=== PATIENT | female | born 1955 | race Caucasian/White ===

== ENCOUNTER 2016-06-02 16:13 | Emergency (ER) | payer OTHER ==
[~2016-06-02] VITALS: Ht 160 cm; Wt 77.6 kg
[~2016-06-02 16:13] MED LIST: ALBUTEROL0.09 MG/A1 IH; AMLODIPINE5 M1 PO; BENICAR HCT 12.1 TA1 PO; COZAAR50 MG PO; ECOTRIN81 MG PO; GLUCOPHAGE500 MG PO; INVOKANA100 MG PO; ISORDIL20 MG PO; JANUVIA50 MG PO; LANTUS INS100 UNITS/ SUBQ; LOPRESSOR50 MG PO; LOSARTAN POTASS50 MG PO; NITROSTAT0.4 M1 SL; ONGLYZA5 MG PO; OYST CAL PO; PHENAZOPYRIDIN100 MG PO; PIOGLITAZONE15 MG PO; ROBAXIN500 M1 PO; VITAMIN D2000 I1 PO
[2016-06-02 16:26] VITALS: BP 125/71
[2016-06-02 16:46] VITALS: BP 125/71
--- NOTE | 2016-06-02 16:46 | NUR ---
Patient discharged with v/s stable. Written and verbal after care instructions given and explained. Patient alert, oriented and verbalized understanding of instructions. Ambulatory with steady gait. All questions addressed prior to discharge. ID band removed. Patient advised to follow up with PMD. Rx of TYLENOL, CHLORASEPTIC 1.4 % THROAT SPRAY & AMOXICILLIN given. Patient educated on indication of medication including possible reaction and side effects. Opportunity to ask questions provided and answered.
--- NOTE | 2016-06-02 16:52 | NUR ---
61F BIB FAMILY C/O THROAT PAIN RADIATES TO LEFT EAR X 10 DAYS. PT DENIES N/V/D; SKIN IS PINK/WARM/DRY; AAOX4 WITH EVEN AND STEADY GAIT; LUNGS CLEAR BL; HR EVEN AND REGULAR; PT DENIES ANY FEVER, CP, SOB, OR COUGH AT THIS TIME; PATIENT STATES PAIN OF1 0/10 AT THIS TIME; VSS; PATIENT POSITIONED FOR COMFORT; HOB ELEVATED; BEDRAILS UP X2; BED DOWN. ER MD MADE AWARE OF PT STATUS.
== END 2016-06-02 16:52 | disposition home or self-care (01) ==
LOC: MED 16:13
DX: J02.9 Acute pharyngitis, unspecified (principal); I20.9 Angina pectoris, unspecified; I10 Essential (primary) hypertension; E11.9 Type 2 diabetes mellitus without complications; Z79.82 Long term (current) use of aspirin

== ENCOUNTER 2016-08-02 09:58 | Inpatient (IN) | payer OTHER ==
[~2016-08-02] VITALS: Ht 154.9 cm; Wt 79.4 kg
[~2016-08-02 09:58] MED LIST changes: -ALBUTEROL0.09 MG/A1 IH; +AMLO5TAB8 PO; -AMLODIPINE5 M1 PO; +ASPI-1093 PO; -BENICAR HCT 12.1 TA1 PO; +CANA100T PO; -COZAAR50 MG PO; -ECOTRIN81 MG PO; -GLUCOPHAGE500 MG PO; -INVOKANA100 MG PO; -ISORDIL20 MG PO; -JANUVIA50 MG PO; -LANTUS INS100 UNITS/ SUBQ; -LOPRESSOR50 MG PO; +LOSA50TA39 PO; -LOSARTAN POTASS50 MG PO; +METF500T PO; +NITR0.4T2 SL; -NITROSTAT0.4 M1 SL; -ONGLYZA5 MG PO; -OYST CAL PO; -PHENAZOPYRIDIN100 MG PO; +PIOG15TA PO; -PIOGLITAZONE15 MG PO; -ROBAXIN500 M1 PO; -VITAMIN D2000 I1 PO; +[UNRECOGNIZED DRUG - CODE] PO
[2016-08-02 10:03] VITALS: BP 149/68
--- NOTE | 2016-08-02 10:30 | NUR ---
PT TO BED 3.
--- NOTE | 2016-08-02 10:32 | NUR ---
PT AMBUALTE TO RESTROOM FOR URINE SAMPLE.
--- NOTE | 2016-08-02 10:40 | NUR ---
61/F BIB TO ED C/O INTERMITTENT ANTERIOR CHEST PAIN WITH DEEP INSPIRATION X3 DAYS TODAY HEADACHE AND DIZZINESS, ABDOMINAL PAIN, NAUSEA, AND COLD SENSATION TO FEET. HX DM, AND HTN. PT ON RX METFORMIN, LANTUS, IVOCANA, NANUVIA, ASA, LORSARTAN. ER MD MADE AWARE.
[2016-08-02] MEDS ORDERED: ASPIRIN 81 MG TAB.CHEW PO ONE (10:50)
--- NOTE | 2016-08-02 10:50 | NUR ---
Patient being evaluated by physician at bedside.
[2016-08-02 10:54] LABS: BASOPHILS # (AUTO) 0.2 K/uL (0.00-0.22); BASOPHILS % (AUTO) 1.6 % (0.0-2.0); EOSINOPHILS # (AUTO) 0.2 K/uL (0-0.4); EOSINOPHILS % (AUTO) 2.4 % (0.0-4.0); HEMATOCRIT 39.7 % (36-48); LYMPHOCYTES % (AUTO) 31.4 % (20.5-51.1); MEAN CORPUSCULAR HEMOGLOBIN 29 pg (27-31); MEAN CORPUSCULAR HGB CONC 33 g/dL (33-37); MEAN CORPUSCULAR VOLUME 88 fL (80-94); MONOCYTES # (AUTO) 0.5 K/uL (0.8-1.0); MONOCYTES % (AUTO) 5.3 % (1.7-9.3); NEUTROPHILS # (AUTO) 5.5 K/uL (1.8-7.7); NEUTROPHILS % (AUTO) 59.3 % (42.2-75.2); PLATELET COUNT (AUTO) 286 K/uL (140-450); RED BLOOD CELL COUNT(AUTO) 4.51 MIL/uL (4.20-5.40); RED CELL DISTRIBUTION WIDTH 13.8 % (11.6-13.7); WHITE BLOOD COUNT (AUTO) 9.4 K/uL (4.8-10.8)
[2016-08-02 11:15] LABS: CREATININE 0.9 mg/dL (0.6-1.3)
[2016-08-02] MEDS ORDERED: NITROGLYCERIN 2% 1 GM PKT TP ONE (11:15)
[2016-08-02 11:31] LABS: PARTIAL THROMBOPLASTIN TIME 24.6 secs (22-35.6); PROTHROMBIN TIME 9.8 secs (10.8-13.4)
[2016-08-02 12:02] LABS: ALBUMIN 3.7 g/dL (3.4-5.0); TOTAL BILIRUBIN 0.3 mg/dL (0.0-1.0); TOTAL PROTEIN, SERUM 7.1 g/dL (6.4-8.2)
[2016-08-02] MEDS ORDERED: NITROGLYCERIN 0.4 MG TAB SL PRN (12:55)
[2016-08-02] MEDS ORDERED: HYDROcodone/APAP 5/325 MG 1 TAB TAB PO PRN (12:55)
[2016-08-02] MEDS ORDERED: LORazepam 2 MG/ML VIAL IVP PRN (12:55)
[2016-08-02] MEDS ORDERED: DEXTROSE 50% 50 ML SYR IVP PRN (12:55)
[2016-08-02] MEDS ORDERED: MORPHINE SULFATE 2 MG/ML SYR IVP PRN (12:55)
[2016-08-02] MEDS ORDERED: ONDANSETRON 4 MG/2 ML VIAL IVP PRN (12:55)
[2016-08-02] MEDS ORDERED: INSULIN LISPRO SLIDING SCALE 100 UNITS/ML VIAL SUBQ PRN (12:55)
[2016-08-02] MEDS ORDERED: ACETAMINOPHEN 325 MG TAB PO PRN (12:55)
--- NOTE | 2016-08-02 13:26 | NUR ---
CALLED [facility]. STS RECEIVING RN AT LUNCH AT THIS TIME. WILL CALL BACK IN 10-15MINS. CHARGE MADE AWARE.
--- NOTE | 2016-08-02 13:35 | NUR ---
Patient will be admitted to care of DR. BRITTON. Admited to TELE. Will go to room 120-A. Belongings list completed. Report to CP.
[2016-08-02 14:00] VITALS: BP 135/55
--- NOTE | 2016-08-02 14:00 | NUR ---
RECEIVED PT FROM ED VIA NIA, PT IS A/OX4, AMBULATORY, SKIN IS INTACT, IV ON THE RT AC, PATENT, INTACT, FLUSHING WELL, NO S/S OF RESPIRATORY DISTRESS OR DISCOMFORT NOTED, SAFETY/FALL PRECAUTIONS ARE IN PLACE, ORIENTED PT TO ROOM, DISCUSSED PLAN OF CARE WITH PT, PT VERBALIZED UNDERSTANDING, CALL LIGHT IS WITHIN REACH, WILL CONTINUE TO MONITOR.
[2016-08-02 16:00] VITALS: BP 106/53
--- NOTE | 2016-08-02 16:00 | NUR ---
PT IS RESTING IN BED, IS AT BEDSIDE.
[2016-08-02] MEDS: BLOOD GLUCOSE MONITORING 1 DEV DEV FS SCH ×2 (16:30→21:14)
--- NOTE | 2016-08-02 18:15 | NUR ---
PT IS RESTING IN BED, CALL LIGHT WITHIN REACH, WILL CONTINUE TO MONITOR.
--- NOTE | 2016-08-02 19:35 | NUR ---
RECEIVED REPORT FROM DAY SHIFT NURSE. PT AOX4, ABLE TO VERBALIZE NEEDS. PT RESTING IN BED. PT DENIES CHEST PAIN AT THIS TIME. NO SOB OR S/S OF ACUTE DISTRESS. ELECTRONIC PREPRESS OPERATOR IN PLACE. IV ACCESS ASYMPTOMATIC, PATENT AND INTACT, SALINE LOCKED. DISCUSSED AND REVIEWED PLAN OF CARE WITH PT, PT INSTRUCTED TO BE NPO AT MIDNIGHT FOR LEXISCAN TOMORROW. PT VERBALIZES UNDERSTANDING. SAFETY MEASURES ENSURED. CALL LIGHT WITHIN REACH. WILL CONTINUE TO MONITOR.
--- NOTE | 2016-08-02 19:35 | NUR ---
ENDORSED PT TO RUPERT SAMANO. FOR CONTINUITY OF CARE. PT STABLE AT THIS TIME.
[2016-08-02 19:54] LABS: CREATINE KINASE MB 0.4 ng/mL (0-3.6)
[2016-08-02 20:00] VITALS: BP 126/60
--- NOTE | 2016-08-02 21:00 | NUR ---
BLOOD GLUCOSE CHECK 98, NO INSULIN COVERAGE NEEDED. CONDITION STABLE. ALL NEEDS MET. SAFETY MEASURES ENSURED. CALL LIGHT WITHIN REACH. WILL CONTINUE TO MONITOR.
[2016-08-03] VITALS: BP 123/59
--- NOTE | 2016-08-03 01:00 | NUR ---
PT SLEEPING IN BED COMFORTABLY. CONDITION STABLE. SAFETY MEASURES ENSURED. CALL LIGHT WITHIN REACH. WILL CONTINUE TO MONITOR.
[2016-08-03 03:11] LABS: BASOPHILS # (AUTO) 0.3 K/uL (0.00-0.22); BASOPHILS % (AUTO) 4.2 % (0.0-2.0); EOSINOPHILS # (AUTO) 0.5 K/uL (0-0.4); EOSINOPHILS % (AUTO) 5.9 % (0.0-4.0); HEMATOCRIT 37.8 % (36-48); HEMOGLOBIN 12.2 g/dL (12.0-16.0); LYMPHOCYTES # (AUTO) 2.7 K/uL (2.5-16.5); LYMPHOCYTES % (AUTO) 35.5 % (20.5-51.1); MEAN CORPUSCULAR HEMOGLOBIN 28 pg (27-31); MEAN CORPUSCULAR HGB CONC 32 g/dL (33-37); MEAN CORPUSCULAR VOLUME 87 fL (80-94); MONOCYTES # (AUTO) 0.6 K/uL (0.8-1.0); MONOCYTES % (AUTO) 7.5 % (1.7-9.3); NEUTROPHILS # (AUTO) 3.6 K/uL (1.8-7.7); NEUTROPHILS % (AUTO) 46.9 % (42.2-75.2); PLATELET COUNT (AUTO) 275 K/uL (140-450); RED BLOOD CELL COUNT(AUTO) 4.35 MIL/uL (4.20-5.40); WHITE BLOOD COUNT (AUTO) 7.7 K/uL (4.8-10.8)
[2016-08-03 03:30] LABS: ALBUMIN 3.1 g/dL (3.4-5.0); ANION GAP 8.9 (8-16); CALCIUM 8.6 mg/dL (8.5-10.1); CARBON DIOXIDE 29.2 mmol/L (21-32); CREATININE 0.7 mg/dL (0.6-1.3); POTASSIUM 4.1 mmol/L (3.5-5.1); TOTAL BILIRUBIN 0.4 mg/dL (0.0-1.0); TOTAL PROTEIN, SERUM 6.2 g/dL (6.4-8.2)
[2016-08-03 03:40] LABS: CREATINE KINASE MB 0.4 ng/mL (0-3.6)
[2016-08-03 04:00] VITALS: BP 127/58
--- NOTE | 2016-08-03 04:00 | NUR ---
PT SLEEPING IN BED COMFORTABLY. CONDITION STABLE. ALL NEEDS MET. SAFETY MEASURES ENSURED. CALL LIGHT WITHIN REACH. WILL CONTINUE TO MONITOR.
--- NOTE | 2016-08-03 06:48 | NUR ---
PT BLOOD GLUCOSE 123, NO INSULIN COVERAGE NEEDED. CONDITION STABLE. ALL NEEDS MET. SAFETY MEASURES ENSURED. CALL LIGHT WITHIN REACH. WILL CONTINUE TO MONITOR.
--- NOTE | 2016-08-03 07:30 | NUR ---
ENDORSED PLAN OF CARE TO DAY SHIFT NURSE. CONDITION STABLE.
--- NOTE | 2016-08-03 07:31 | NUR ---
SBAR REPORT RECEIVED FROM RUPERT SAMANO AT PT BEDSIDE. PT RESTING IN BED. DENIES PAIN. NO S/S OF RESPIRATORY DISTRESS. AAOX4, KHMER SPEAKING. MADE AWARE OF UPCOMING PROCEDURE TODAY AND NPO STATUS. PT HAS NO WEAKNESS NOTED IN ALL EXTREMITIES. IV SITE PATENT AND INTACT. CALL LIGHT WITHIN REACH. BED IN LOWEST POSITION. WILL CONTINUE TO MONITOR.
[2016-08-03] MEDS: BLOOD GLUCOSE MONITORING 1 DEV DEV FS SCH ×2 (07:53→11:30)
[2016-08-03 08:00] VITALS: BP 121/55
[2016-08-03] MEDS ORDERED: LOSARTAN 50 MG TAB PO SCH (09:00)
[2016-08-03] MEDS ORDERED: ECOTRIN 81 MG TABEC PO SCH (09:00)
[2016-08-03] MEDS ORDERED: ENOXAPARIN 40 MG/0.4 ML SYR SUBQ SCH (09:00)
--- NOTE | 2016-08-03 09:45 | NUR ---
CM NOTE INITIAL REVIEW SENT TO [facility] FAX# [phone] PH# [phone] CM PAT EXT [id number]
--- NOTE | 2016-08-03 10:04 | NUR ---
PATIENT HAS BEEN SCREENED AND CATEGORIZED MODERATE NUTRITION RISK. PATIENT WILL BE SEEN WITHIN 3-5 DAYS OF ADMISSION. 08/04/16-08/06/[address]
--- NOTE | 2016-08-03 11:00 | NUR ---
PATIENT TAKEN OFF FLOOR FOR LEXISCAN STRESS TEST.
[2016-08-03] MEDS ORDERED: REGADENOSON 0.4 MG/5 ML SYR IV SCH (12:00)
[2016-08-03] MEDS ORDERED: NACL 0.9% 1,000 ML IV SCH (12:35)
[2016-08-03 12:46] VITALS: BP 149/71
--- NOTE | 2016-08-03 13:16 | NUR ---
CM NOTE RECEIVED ORDER FOR TRANSFER TO [facility] LAY OUT MAKER FOR CARDIAC CATH. SPOKE WITH WALESKA OF [facility] AND SHE CONFIRMED PATIENT PROCEDURE SCHEDULED TODAY AT TIME 1600. SENT PATIENT INFORMATION REQUESTED TO [facility] FAX# [phone]. SPOKE WITH LUPE VASQUEZ OF [facility] PH# [phone] EXT [phone] [facility] AUTH# [id number], FOR [facility] AUTH# [id number]. SPOKE WITH BAILEE OF [facility] TO SET UP PATIENT TRANSPORT ACLS PH# [phone] PERSONNEL REPRESENTATIVE TIME 1400 TODAY TO PASS BY [facility] ED THEN [facility] LAY OUT MAK[facility]. PER KEVIN OF [facility] LAY OUT [facility], NUMBER TO CALL FOR REPORT AT [facility] HOLDING ROOM PH# [phone]. NURSE NURIA EXT [phone] AWARE.
--- NOTE | 2016-08-03 13:30 | NUR ---
LEXISXAN STRESS TEST DONE
--- NOTE | 2016-08-03 14:01 | NUR ---
SBAR REPORT GIVEN TO RUPERT WHITLOCK AT [facility] POTATO CHIP PACKAGING MACHINE OPERATOR. [facility] HERE TO TAKE PATIENT TO [facility]. DISCHARGE INSTRUCTIONS GIVEN TO PATIENT AND FAMILY. VERBALIZED UNDERSTANDING. NO S/S OF ACUTE DISTRESS AT THIS TIME. AAOX4.
== END 2016-08-03 13:50 | disposition short-term general hospital (02) | DRG 198 ==
LOC: MED 09:58 → MTU 12:56
PROVIDERS: ADMIT Hospitalist; ATTEND Hospitalist
DX: I25.119 Atherosclerotic heart disease of native coronary artery with unspecified angina pectoris (principal); I10 Essential (primary) hypertension; M19.90 Unspecified osteoarthritis, unspecified site; E78.5 Hyperlipidemia, unspecified; E11.9 Type 2 diabetes mellitus without complications; E66.9 Obesity, unspecified; J45.909 Unspecified asthma, uncomplicated; Z68.33 Body mass index [BMI] 33.0-33.9, adult; Z87.891 Personal history of nicotine dependence; Z82.49 Family history of ischemic heart disease and other diseases of the circulatory system
CPT/HCPCS: 36415; 71010; 80053; 82550; 82553; 82948; 83880; 84484; 85025; 85379; 85610; 85730; 87081; 93005; 93017; 99285; A9500; A9502; J1650; J1815; J2270; J2785; J7030

== ENCOUNTER 2017-07-22 10:21 | Inpatient (IN) | payer OTHER ==
[~2017-07-22] VITALS: Ht 160 cm; Wt 81.6 kg
[~2017-07-22 10:21] MED LIST changes: +HYDR-2729 PO; -[UNRECOGNIZED DRUG - CODE] PO
[2017-07-22 10:26] VITALS: BP 153/100
--- NOTE | 2017-07-22 10:32 | NUR ---
PATIENT PRESENTS TO ED WITH COMPLAINS OF DIFFICULTY BREATHING AND CHEST PAIN AT CARDIAC SURGERY INCISION. PT STATES IT BEEN ONE WEEK THAT SHE HAS BEEN FEELING THIS WAY AND SHE FEELS STABBING PAIN AT CHEST SCAR. aLSO PATIENT STATES SHE FEELS LIKE ANTS ARE CRAWLING ALL OVER HER BODY. DENIES N/V; SKIN IS PINK/WARM/DRY; AAOX4 WITH EVEN AND STEADY GAIT; LUNGS CLEAR BL; HR EVEN AND REGULAR; PT DENIES ANY FEVER; PATIENT STATES PAIN OF 9/10 AT THIS TIME; VSS; PATIENT POSITIONED FOR COMFORT; HOB ELEVATED; BEDRAILS UP X2; BED DOWN. ER MD MADE AWARE OF PT STATUS.
[2017-07-22] MEDS ORDERED: MORPHINE SULFATE 4 MG/ML SYR IVP ONE (10:45)
[2017-07-22 11:18] LABS: BASOPHILS # (AUTO) 0.1 K/uL (0.00-0.22); BASOPHILS % (AUTO) 0.8 % (0.0-2.0); EOSINOPHILS # (AUTO) 0.5 K/uL (0-0.4); HEMATOCRIT 38.8 % (36-48); HEMOGLOBIN 12.7 g/dL (12.0-16.0); LYMPHOCYTES # (AUTO) 2.3 K/uL (2.5-16.5); LYMPHOCYTES % (AUTO) 27.4 % (20.5-51.1); MEAN CORPUSCULAR HEMOGLOBIN 29 pg (27-31); MEAN CORPUSCULAR HGB CONC 33 g/dL (33-37); MEAN CORPUSCULAR VOLUME 87.1 fL (80-94); MONOCYTES # (AUTO) 0.7 K/uL (0.8-1.0); MONOCYTES % (AUTO) 7.9 % (1.7-9.3); NEUTROPHILS # (AUTO) 4.9 K/uL (1.8-7.7); NEUTROPHILS % (AUTO) 57.9 % (42.2-75.2); PLATELET COUNT (AUTO) 276 K/uL (140-450); RED BLOOD CELL COUNT(AUTO) 4.45 MIL/uL (4.20-5.40); RED CELL DISTRIBUTION WIDTH 13.9 % (11.6-13.7); WHITE BLOOD COUNT (AUTO) 8.4 K/uL (4.8-10.8)
[2017-07-22] MEDS ORDERED: ASPIRIN 325 MG TAB PO ONE (11:20)
[2017-07-22 11:51] LABS: ANION GAP 12.9 (8-16); CARBON DIOXIDE 27.9 mmol/L (21-32); CREATININE 0.9 mg/dL (0.6-1.3); POTASSIUM 3.8 mmol/L (3.5-5.1); TOTAL BILIRUBIN 0.3 mg/dL (0.0-1.0)
[2017-07-22 11:52] LABS: ALBUMIN 3.7 g/dL (3.4-5.0)
[2017-07-22 12:10] LABS: APPEARANCE,URINE CLEAR (CLEAR); BILIRUBIN,URINE NEGATIVE (NEGATIVE); BLOOD, URINE NEGATIVE (NEGATIVE); COLOR,URINE YELLOW (YELLOW); LEUKOCYTE ESTERASE ,URINE NEGATIVE (NEGATIVE); NITRITE, URINE NEGATIVE (NEGATIVE); UGLUCOSE 3+ (NEGATIVE)
[2017-07-22] MEDS ORDERED: ONDANSETRON 4 MG/2 ML VIAL IVP PRN (12:30)
[2017-07-22] MEDS ORDERED: HYDROcodone/APAP 5/325 MG 1 TAB TAB PO PRN ×2 (12:30)
[2017-07-22] MEDS ORDERED: ACETAMINOPHEN 325 MG TAB PO PRN (12:30)
--- NOTE | 2017-07-22 12:55 | NUR ---
Louie hartmann in ED - 07/22/17 at 1301 by TINY Patient will be admitted to care of DR BRISCOE. Admited to TELE. Will go to room 121A. Belongings list completed. Report to RUPERT MARINELLI
--- NOTE | 2017-07-22 12:55 | NUR ---
Patient will be admitted to care of DR BRISCOE. Admited to TELE. Will go to room 121B. Belongings list completed. Report to RUPERT MARINELLI
[2017-07-22 13:05] VITALS: BP 167/65
--- NOTE | 2017-07-22 13:05 | NUR ---
PATIENT BROUGHT TO UNIT VIA GURNEY FROM ER. PATIENT WAS ABLE TO AMBULATE FROM THE GURNEY TO THE BED. HAS NO SIGNS AND SYMPTOMS OF ACUTE DISTRESS NOTED AT THIS TIME. CONNECTED TO THE OXYGEN VIA NASAL CANNULA AT 2L. PATIENT HAS IV TO THE RIGHT AC 20G. SALINE LOCK AT THIS TIME. ORIENTED PATIENT TO THE ROOM. EXPLAINED THE CALL LIGHT TO HER. SHE VERBALIZED UNDERSTANDING. BED IN LOWEST POSITION, SIDE RAILS UP X2, CALL LIGHT WITHIN REACH. WILL CONTINUE TO MONITOR.
[2017-07-22] MEDS ORDERED: INSULIN LISPRO SLIDING SCALE 100 UNITS/ML VIAL SUBQ PRN (13:30)
[2017-07-22 16:00] VITALS: BP 135/50
[2017-07-22] MEDS: BLOOD GLUCOSE MONITORING 1 DEV DEV FS SCH ×2 (16:30→20:42)
[2017-07-22] MEDS ORDERED: METO25TA PO (18:51)
[2017-07-22] MEDS ORDERED: ATOR40TA40 PO (18:51)
[2017-07-22] MEDS ORDERED: NITROGLYCERIN 0.4 MG TAB SL PRN (19:20)
[2017-07-22] MEDS ORDERED: FUROSEMIDE 20 MG/2 ML VIAL IVP SCH (19:30)
--- NOTE | 2017-07-22 19:31 | NUR ---
ENDORSED TO FINANCIAL RESERVE CLERK NURSE FOR CONTINUITY OF CARE. PATIENT IN STABLE CONDITION.
--- NOTE | 2017-07-22 19:35 | NUR ---
RECEIVED IN BED AWAKE AND ALERT. NO SOB. DENIES PAIN AT THIS TIME. FAMILY MEMBERS VISITING. CARE PLANS FOR THE NIGHT DISCUSSED WITH HER. CALL LIGHT WITH IN REACH AND TELEMETRY MONITORING. IVF SITE TO RAC#20 . NO INFILTRATION. GOOD BLOOD RETURN. CARE PLANS FOR THE NIGHT DISCUSSED WITH THEM AND CALL LIGHT WITH N REACH AT ALL TIMES. TELEMETRY MONITORING. AFEBRILE.
[2017-07-22] MEDS ORDERED: NIFEdipine 30 MG TABER PO SCH (20:00)
--- NOTE | 2017-07-22 20:03 | NUR ---
PT. WHEELED OUT TO CT SCAN ROOM AWAEK AND ALERT FOR CT CHEST WITHOUT CONTRAST. FAMILY MEMBERS IN HERE VISITING.
[2017-07-22 20:13] VITALS: BP 135/60
[2017-07-22 23:20] VITALS: BP 113/43
[2017-07-22] MEDS: FUROSEMIDE 20 MG/2 ML VIAL IVP SCH (23:25)
[2017-07-23 04:00] VITALS: BP 105/42
--- NOTE | 2017-07-23 04:15 | NUR ---
SLEEPING. NO RESTLESSNESS. PT. AMBULATES TO RESTROOM BY HERSELF. INDEPENDENT. ABLE TO USE CALL LIGHT AND ABLE TO VERBALIZE NEEDS WELL.
[2017-07-23] MEDS: BLOOD GLUCOSE MONITORING 1 DEV DEV FS SCH (06:22)
[2017-07-23] MEDS: FUROSEMIDE 20 MG/2 ML VIAL IVP SCH (06:22)
--- NOTE | 2017-07-23 07:03 | NUR ---
PT. BLOOD SUGAR THIS A.M. IS 116 MG/DL PER FINGERSTICK. NO SOB. NO PAIN COMPLAINTS AT THIS TIME MEDICATED WITH PAIN RELIEVER THIS SHIFT TIMES 1 . TELEMETRY MONITORING. CALL LIGHT WITH IN REACH.
--- NOTE | 2017-07-23 07:25 | NUR ---
RECEIVED REPORT FROM COMPUTER INFORMATION SYSTEMS PROFESSOR RN. PATIENT IS AAOX4, HAS NASAL CANNULA AT 2LPM, NO SIGNS AND SYMPTOMS OF ACUTE RESPIRATORY DISTRESS NOTED AT THIS TIME. DENIES PAIN. HAS IV TO THE RIGHT AC 20G, SALINE LOCK AT THIS TIME. DISCUSSED PLAN OF CARE WITH PATIENT AND SHE VERBALIZED UNDERSTANDING. BED IN LOWEST POSITION, SIDE RAILS UP X2, CALL LIGHT WITHIN REACH. WILL CONTINUE TO MONITOR.
[2017-07-23] MEDS ORDERED: ALBUTEROL SULFATE/IPRATROPIU 3 ML SOL IH PRN (07:45)
[2017-07-23 08:00] VITALS: BP 132/67
--- NOTE | 2017-07-23 08:58 | NUR ---
PATIENT HAS BEEN SCREENED AND CATEGORIZED MODERATE NUTRITION RISK. PATIENT WILL BE SEEN WITHIN 3-5 DAYS OF ADMISSION. 07/25/17 07/27/[address]
[2017-07-23] MEDS ORDERED: ECOTRIN 81 MG TABEC PO SCH (09:00)
[2017-07-23] MEDS ORDERED: ATORVASTATIN 20 MG TAB PO SCH (09:00)
[2017-07-23] MEDS ORDERED: METOPROLOL SUCCINATE 50 MG TABER PO SCH (09:00)
[2017-07-23] MEDS ORDERED: NIFEdipine 30 MG TABER PO SCH (09:00)
[2017-07-23] MEDS ORDERED: LOSARTAN 50 MG TAB PO SCH (09:00)
[2017-07-23] MEDS ORDERED: OLMESARTAN PO SCH (09:00)
[2017-07-23] MEDS ORDERED: HYDROCHLOROTHIAZIDE PO SCH (09:00)
[2017-07-23] MEDS ORDERED: [UNRECOGNIZED DRUG - OTHER] PO SCH (09:00)
[2017-07-23 09:42] LABS: BASOPHILS % (AUTO) 0.6 % (0.0-2.0); EOSINOPHILS # (AUTO) 0.5 K/uL (0-0.4); EOSINOPHILS % (AUTO) 7.8 % (0.0-4.0); HEMATOCRIT 38.6 % (36-48); HEMOGLOBIN 12.7 g/dL (12.0-16.0); LYMPHOCYTES # (AUTO) 1.6 K/uL (2.5-16.5); LYMPHOCYTES % (AUTO) 23.6 % (20.5-51.1); MEAN CORPUSCULAR HEMOGLOBIN 29 pg (27-31); MEAN CORPUSCULAR HGB CONC 33 g/dL (33-37); MEAN CORPUSCULAR VOLUME 87.1 fL (80-94); MONOCYTES # (AUTO) 0.5 K/uL (0.8-1.0); MONOCYTES % (AUTO) 7.7 % (1.7-9.3); NEUTROPHILS # (AUTO) 4.2 K/uL (1.8-7.7); NEUTROPHILS % (AUTO) 60.3 % (42.2-75.2); PLATELET COUNT (AUTO) 264 K/uL (140-450); RED BLOOD CELL COUNT(AUTO) 4.43 MIL/uL (4.20-5.40); WHITE BLOOD COUNT (AUTO) 6.9 K/uL (4.8-10.8)
[2017-07-23] MEDS ORDERED: LISI2.5T12 PO ×2 (10:03→10:06)
[2017-07-23 10:12] LABS: ALBUMIN 3.4 g/dL (3.4-5.0); ANION GAP 11.3 (8-16); CARBON DIOXIDE 28.2 mmol/L (21-32); POTASSIUM 3.5 mmol/L (3.5-5.1); TOTAL BILIRUBIN 0.3 mg/dL (0.0-1.0)
--- NOTE | 2017-07-23 11:28 | NUR ---
CLINICAL INFORMATION FAXED TO BRE AT [facility] [phone] AND INFORMED OF ORDER FOR HIGH RISK CLINIC FOLLOW UP APPOINTMENT. BRE PHONE [phone]
--- NOTE | 2017-07-23 11:30 | NUR ---
DISCHARGE ORDER IS IN PLACE. GAVE PATIENT EDUCATION ON FOLLOWING UP WITH PCP, AND ENGINEERING MODEL MAKER. INFORMED HER THAT THERE IS A PRESCRIPTION FOR A NEW MEDICATION IN HER PACKET. EDUCATED HER ON SIGNS AND SYMPTOMS OF DISTRESS TO SEEK EMERGENCY MEDICAL ATTENTION. SHE VERBALIZED UNDERSTANDING. REMOVED IV FROM SITE. DRESSING APPLIED, CLEAN AND DRY. ALL BELONGINGS ARE WITH PATIENT. ID BAND REMOVED. WILL WHEEL PATIENT OUT.
== END 2017-07-23 11:30 | disposition home or self-care (01) | DRG 194 ==
LOC: MED 10:21 → MTU 12:36
PROVIDERS: ADMIT Hospitalist; ATTEND Hospitalist
DX: I11.0 Hypertensive heart disease with heart failure (principal); J96.00 Acute respiratory failure, unspecified whether with hypoxia or hypercapnia; M94.0 Chondrocostal junction syndrome [Tietze]; I50.43 Acute on chronic combined systolic (congestive) and diastolic (congestive) heart failure; M60.9 Myositis, unspecified; E11.9 Type 2 diabetes mellitus without complications; E78.5 Hyperlipidemia, unspecified; I25.10 Atherosclerotic heart disease of native coronary artery without angina pectoris; J45.909 Unspecified asthma, uncomplicated; Z95.1 Presence of aortocoronary bypass graft; Z87.891 Personal history of nicotine dependence; Z79.899 Other long term (current) drug therapy; Z79.82 Long term (current) use of aspirin; Z79.84 Long term (current) use of oral hypoglycemic drugs
CPT/HCPCS: 36415; 71045; 71250; 80053; 81003; 82948; 83880; 84484; 85025; 87081; 93005; 96374; 99285; G0480; J1815; J1940; J2270; Q0092

== ENCOUNTER 2017-08-17 13:31 | Emergency (ER) | payer OTHER ==
[~2017-08-17] VITALS: Ht 160 cm; Wt 81.6 kg
[~2017-08-17 13:31] MED LIST changes: -AMLO5TAB8 PO; +ATOR40TA40 PO; -CANA100T PO; +LISI2.5T12 PO; +METO25TA PO
--- NOTE | 2017-08-17 13:40 | NUR ---
PT AMBULATES TO BED 11
[2017-08-17 13:43] VITALS: BP 150/73
--- NOTE | 2017-08-17 14:11 | NUR ---
PATIENT PRESENTS TO ED WITH cp with sob x today . . DENIES N/V/D; SKIN IS PINK/WARM/DRY; AAOX4 WITH EVEN AND STEADY GAIT; LUNGS CLEAR BL; HR EVEN AND REGULAR; PT DENIES ANY FEVER AT THIS TIME; PATIENT STATES PAIN OF 8/10 AT THIS TIME; VSS; PATIENT POSITIONED FOR COMFORT; HOB ELEVATED; BEDRAILS UP X2; BED DOWN. ER MD MADE AWARE OF PT STATUS.
[2017-08-17] MEDS ORDERED: KETOROLAC 30 MG/ML VIAL IVP ONE (14:15)
[2017-08-17] MEDS ORDERED: ASPIRIN 81 MG TAB.CHEW PO ONE (14:15)
[2017-08-17] MEDS ORDERED: CARV3.12 PO (14:22)
[2017-08-17] MEDS ORDERED: ORE25 PO (14:22)
[2017-08-17] MEDS ORDERED: CANA100T PO (14:22)
[2017-08-17] MEDS ORDERED: PENT400T3 PO (14:22)
[2017-08-17] MEDS ORDERED: SITA50TA3 PO (14:22)
[2017-08-17] MEDS ORDERED: LOSA25TA22 PO (14:22)
[2017-08-17 15:03] LABS: BASOPHILS # (AUTO) 0.1 K/uL (0.00-0.22); BASOPHILS % (AUTO) 0.7 % (0.0-2.0); EOSINOPHILS # (AUTO) 0.4 K/uL (0-0.4); HEMATOCRIT 37.3 % (36-48); HEMOGLOBIN 12.3 g/dL (12.0-16.0); LYMPHOCYTES # (AUTO) 2.9 K/uL (2.5-16.5); LYMPHOCYTES % (AUTO) 34.8 % (20.5-51.1); MEAN CORPUSCULAR HEMOGLOBIN 29 pg (27-31); MEAN CORPUSCULAR HGB CONC 33 g/dL (33-37); MEAN CORPUSCULAR VOLUME 86.4 fL (80-94); MONOCYTES # (AUTO) 0.7 K/uL (0.8-1.0); MONOCYTES % (AUTO) 7.9 % (1.7-9.3); NEUTROPHILS # (AUTO) 4.3 K/uL (1.8-7.7); NEUTROPHILS % (AUTO) 51.6 % (42.2-75.2); PLATELET COUNT (AUTO) 272 K/uL (140-450); RED BLOOD CELL COUNT(AUTO) 4.31 MIL/uL (4.20-5.40); RED CELL DISTRIBUTION WIDTH 14.1 % (11.6-13.7); WHITE BLOOD COUNT (AUTO) 8.3 K/uL (4.8-10.8)
[2017-08-17 15:16] LABS: ANION GAP 15.4 (8-16); CARBON DIOXIDE 23.4 mmol/L (21-32); CREATININE 0.8 mg/dL (0.6-1.3); POTASSIUM 3.8 mmol/L (3.5-5.1)
[2017-08-17 15:21] LABS: ALBUMIN 3.6 g/dL (3.4-5.0); TOTAL BILIRUBIN 0.2 mg/dL (0.0-1.0)
[2017-08-17 16:15] VITALS: BP 123/60
--- NOTE | 2017-08-17 16:15 | NUR ---
Patient discharged with v/s stable. Written and verbal after care instructions given and explained. Patient alert, oriented and verbalized understanding of instructions. Ambulatory with steady gait. All questions addressed prior to discharge. ID band removed. Patient advised to follow up with PMD. Rx of TRAMADOL AND NAPROSYN given. Patient educated on indication of medication including possible reaction and side effects. Opportunity to ask questions provided and answered.
== END 2017-08-17 16:15 | disposition home or self-care (01) ==
LOC: MED 13:31
DX: R07.89 Other chest pain (principal); R51 Headache; R06.02 Shortness of breath; E11.9 Type 2 diabetes mellitus without complications; I10 Essential (primary) hypertension; Z79.84 Long term (current) use of oral hypoglycemic drugs; Z79.899 Other long term (current) drug therapy
CPT/HCPCS: 36415; 71045; 80053; 83880; 84484; 85025; 93005; 96374; 99285; J1885